=== PATIENT | female | born 1970 | race American Indian/Alaskan Native ===

== ENCOUNTER 2017-09-07 15:26 | Emergency (ER) | payer MEDICAID, OTHER ==
[2017-09-07 15:39] VITALS: BP 138/85; PULSE 73; RESP 19; TEMP 98.7; O2SAT 100
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
[2017-09-07 17:28] LABS: BENZODIAZEPINES, UR NEGATIVE (NEGATIVE)
[2017-09-07 17:31] LABS: BARBITURATES, UR NEGATIVE (NEGATIVE); OPIATES, UR NEGATIVE (NEGATIVE); PHENCYCLIDINE, UR NEGATIVE (NEGATIVE)
--- NOTE | 2017-09-07 17:55 | CT ---
PROCEDURE: CT HEAD WITHOUT CONTRAST. HISTORY: head injury, hx seizures COMPARISON: None available. TECHNIQUE: Axial computed tomography images were obtained through the head/brain without intravenous contrast. Radiation dose: Total exam DLP = 830.40 mGy-cm. This CT exam was performed using one or more of the following dose reduction techniques: Automated exposure control, adjustment of the mA and/or kV according to patient size, and/or use of iterative reconstruction technique. FINDINGS: HEMORRHAGE: No intracranial hemorrhage. BRAIN: Barbosa-white matter differentiation is preserved. There is no mass, mass effect or abnormal extra-axial fluid collection. There is no territorial infarction. VENTRICLES: The ventricles are normal in size, shape and configuration. CALVARIUM: There is no calvarial fracture or extracranial soft tissue swelling. PARANASAL SINUSES: Predominantly clear. MASTOID AIR CELLS: Predominantly clear. OTHER FINDINGS: None. IMPRESSION: No acute intracranial abnormality.
[2017-09-08] MEDS ORDERED: Apap-Butalbital-Caffeine 325-50-40mg Tab ONE (02:33)
== END 2017-09-07 17:56 | disposition left against medical advice (07) ==
LOC: H.ER 15:26
DX: R51 Headache (principal); N39.0 Urinary tract infection, site not specified; F13.10 Sedative, hypnotic or anxiolytic abuse, uncomplicated; Z86.59 Personal history of other mental and behavioral disorders; R56.9 Unspecified convulsions

== ENCOUNTER 2017-09-08 01:21 | Emergency (ER) | payer MEDICAID, OTHER ==
[2017-09-08 01:28] VITALS: BP 124/73; PULSE 60; RESP 16; TEMP 98.5; O2SAT 100
[2017-09-08] MEDS ORDERED: Apap-Butalbital-Caffeine 325-50-40mg Tab PO STA (02:07)
[2017-09-08] MEDS ORDERED: Naloxone HCl 2mg/2ml syr IVP ONE (02:14)
--- NOTE | 2017-09-08 02:14 | ED PDOC ---
HPI: Headache Time Seen by Provider: 09/08/17 01:48 Chief Complaint (Nursing): Headache Chief Complaint (Provider): headache History Per: Patient History/Exam Limitations: no limitations Onset/Duration Of Symptoms: Days (12) Current Symptoms Are (Timing): Still Present Quality: Pressure, "Pain" Associated Symptoms: Photophobia Additional Complaint(s): 47 y/o female history of seizures presents with headache x 12 days. Patient states headache started after a fall at [employer]. Patient states she was evaluated at a hospital in [place] and told she had a concussion. Patient states since head injury she has had two seizures, and also reports intermittent chest pain. Patient states she ran out of ESBATech, her seizure medication, and does not have an appointment to see a Neurologist until 3 weeks from now. Patient was evaluated at ED earlier and left. Denies fever, neck pain, extremity numbness/weakness, shortness of breath, palpitations, leg pain/swelling, recent travel. Past Medical History Reviewed: Historical Data, Nursing Documentation, Vital Signs Vital Signs: Last Vital Signs Temp 98.5 F 09/08/17 01:23 Pulse 60 09/08/17 01:23 Resp 16 09/08/17 01:23 BP 124/73 09/08/17 01:23 Pulse Ox 100 09/08/17 01:23 - Medical History PMH: Anxiety, Depression, Seizures (s/p head injury years ago) - Family History Family History: States: Unknown Family Hx - Home Medications Home Medications: Ambulatory Orders Medication Instructions Recorded Ibuprofen [Motrin] 600 mg PO Q6H PRN #20 tab 01/21/15 Nitrofurantoin Macrocrystals 100 mg PO BID #14 cap 01/21/15 [Macrobid] Nitrofurantoin Macrocrystals 100 mg PO BID #14 cap 09/07/17 [Macrobid] Acetaminophen/Butalbital/Caf 1 tab PO Q6 PRN #15 tab 09/08/17 [Fioricet] - Allergies Allergies/Adverse Reactions: Allergies Allergy/AdvReac Type Severity Reaction Status Date / Time ketorolac [From Toradol] Allergy RASH Verified 09/05/17 22:10 metoclopramide [From Reglan] Allergy unknown Verified 09/05/17 22:11 tetracycline Allergy unknown Verified 09/05/17 22:11 - Laboratory Results Result Diagrams: 09/08/17 02:52 09/08/17 02:52 - ECG O2 Sat by Pulse Oximetry: 100 - Progress ED Course And Treament: labs, chest xray, fioricet PO Patient sleeping on re-eval Patient educated on findings, discharged with rx fioricet. Advised follow up PMD/Neuro Patient requesting Klonopin rx; H/o benzo-seeking behavior as per records. [place] shows 15 Zubsolv filled on both 09/01 and 09/05. Advised will need to f/up outpatient neuro for that rx Return precautions given. Disposition - Clinical Impression Clinical Impression: Acute headache, Chest pain - Patient ED Disposition Is Patient to be Admitted: No Counseled Patient/Family Regarding: Studies Performed, Diagnosis, Need For Followup, Rx Given - Disposition Referrals: [facility] [Outside] Disposition: Routine/Home Disposition Time: 04:08 Condition: IMPROVED Prescriptions: Acetaminophen/Butalbital/Caf [Fioricet] 1 tab PO Q6 PRN #15 tab PRN Reason: Headache Instructions: Headache, Adult, Chest Pain, Acute Headache (ED) Forms: [employer] (Kazakh)
[2017-09-08 03:06] LABS: BASO % 0.8 % (0.0-2.0); EOS % 1.3 % (0.0-4.0); LYMPH % 55.7 % (20.0-40.0); MEAN CORPUSCULAR HEMOGLOBIN 32.1 pg (27.0-31.0); MEAN CORPUSCULAR HGB CONC 33.8 g/dL (33.0-37.0); MEAN PLATELET VOLUME 8.5 fl (7.2-11.7); MONO # 0.4 K/uL (0.0-0.8); MONO % 12.3 % (0.0-10.0); NEUT # 1.1 K/uL (1.8-7.0); NEUT % 29.9 % (50.0-75.0); NRBC % 0.3 % (0.0-0.0); RBC 3.42 Mil/uL (3.80-5.20); RED CELL DISTRIBUTION WIDTH 13.1 % (11.5-14.5); WHITE BLOOD COUNT 3.6 K/uL (4.8-10.8)
[2017-09-08 03:14] LABS: ALB/GLOB RATIO 1.2 (1.0-2.1); ALBUMIN 3.9 g/dL (3.5-5.0); ALT/SGPT 68 U/L (9-52); AST/SGOT 46 U/L (14-36); BLOOD UREA NITROGEN 13 mg/dl (7-17); CALCIUM 8.9 mg/dL (8.4-10.2); GFR AFRICAN-AMERICAN > 60; GFR NON-AFRICAN AMERICAN > 60
--- NOTE | 2017-09-08 09:01 | RAD ---
HISTORY: chest pain COMPARISON: No prior. TECHNIQUE: Chest PA and lateral FINDINGS: LUNGS: No active pulmonary disease. PLEURA: No significant pleural effusion identified. No pneumothorax apparent. CARDIOVASCULAR: Normal. OSSEOUS STRUCTURES: No significant abnormalities. VISUALIZED UPPER ABDOMEN: Right upper quadrant surgical clips. OTHER FINDINGS: None. IMPRESSION: No active disease.
== END 2017-09-08 04:13 | disposition home or self-care (01) ==
LOC: H.ER 01:21
DX: R51 Headache (principal); R07.89 Other chest pain; F32.9 Major depressive disorder, single episode, unspecified; F41.9 Anxiety disorder, unspecified

== ENCOUNTER 2017-09-09 01:40 | Emergency (ER) | payer MEDICAID, OTHER ==
[2017-09-09 02:04] VITALS: BP 113/55; PULSE 59; RESP 16; TEMP 98.2; O2SAT 99
[2017-09-09] MEDS ORDERED: Apap-Butalbital-Caffeine 325-50-40mg Tab PO STA (02:14)
[2017-09-09] MEDS ORDERED: Apap-Butalbital-Caffeine 325-50-40mg Tab ONE (02:26)
--- NOTE | 2017-09-09 02:39 | ED PDOC ---
HPI: Headache Time Seen by Provider: 09/09/17 01:52 Chief Complaint (Nursing): Headache Chief Complaint (Provider): Headache History Per: Patient History/Exam Limitations: no limitations Onset/Duration Of Symptoms: Days (x 2 weeks) Current Symptoms Are (Timing): Still Present Quality: "Pain" Additional Complaint(s): 47 y/o female history of seizures presents with headache x 14 days. Patient states headache started after a fall at [employer]. It is the same headache every time in the back of her head. Patient was evaluated at [facility] and told she had a concussion. She was seen at this ED for the same headache and had a CT performed that was negative. Next day, she had labs drawn that were also normal. Patient states since head injury she has had seizures. She reports that 2-3 days ago, she was seen at [facility] for her seizures and was told to follow up with a neurologist. Patient states that she use to be on Clonazepam for seizures which was prescribed by a doctor in [place] where the patient is from. Patient was evaluated at ED yesterday and left. Admits she took Tylenol for pain with no relief. Denies any new seizures and other medical problems. PMD: none provided Past Medical History Reviewed: Historical Data, Nursing Documentation, Vital Signs Vital Signs: Last Vital Signs Temp 98.2 F 09/09/17 02:01 Pulse 59 L 09/09/17 02:01 Resp 16 09/09/17 02:01 BP 113/55 L 09/09/17 02:01 Pulse Ox 99 09/09/17 02:01 - Medical History PMH: Anxiety, Depression, Seizures (s/p head injury years ago) Denies: Chronic Kidney Disease - Surgical History Surgical History: No Surg Hx - Family History Family History: States: Unknown Family Hx - Home Medications Home Medications: Ambulatory Orders Medication Instructions Recorded Ibuprofen [Motrin] 600 mg PO Q6H PRN #20 tab 01/21/15 Nitrofurantoin Macrocrystals 100 mg PO BID #14 cap 01/21/15 [Macrobid] Nitrofurantoin Macrocrystals 100 mg PO BID #14 cap 09/07/17 [Macrobid] Acetaminophen/Butalbital/Caf 1 tab PO Q6 PRN #15 tab 09/08/17 [Fioricet] - Allergies Allergies/Adverse Reactions: Allergies Allergy/AdvReac Type Severity Reaction Status Date / Time ketorolac [From Toradol] Allergy RASH Verified 09/05/17 22:10 metoclopramide [From Reglan] Allergy unknown Verified 09/05/17 22:11 tetracycline Allergy unknown Verified 09/05/17 22:11 Review of Systems ROS Statement: Except As Marked, All Systems Reviewed And Found Negative Neurological: Positive for: Headache Physical Exam - Reviewed Nursing Documentation Reviewed: Yes Vital Signs Reviewed: Yes - Physical Exam Appears: Positive for: Non-toxic, No Acute Distress Head Exam: Positive for: ATRAUMATIC, NORMOCEPHALIC Skin: Positive for: Normal Color, Warm, Dry Eye Exam: Positive for: EOMI, Normal appearance, PERRL Neck: Positive for: Normal, Painless ROM, Supple Cardiovascular/Chest: Positive for: Regular Rate, Rhythm. Negative for: Murmur Respiratory: Positive for: Normal Breath Sounds. Negative for: Respiratory Distress Gastrointestinal/Abdominal: Positive for: Normal Exam, Soft Back: Positive for: Normal Inspection. Negative for: L CVA Tenderness, R CVA Tenderness, Vertebral Tenderness Extremity: Positive for: Normal ROM. Negative for: Deformity Neurologic/Psych: Positive for: Alert, Oriented. Negative for: Motor/Sensory Deficits - ECG O2 Sat by Pulse Oximetry: 99 (RA) Pulse Ox Interpretation: Normal Medical Decision Making Medical Decision Making: Time: 01:52 Impression: recurrent headaches, concussion Initial Plan: --Fioricet 1 tab PO -reassess As per previous chart: [facility] database revealed Zubslov 5.7/1.4mg SL filled on and 09/05 #15 each. Patient denies seizures prior to arrival and had none during the time at the ED. At this time, there are no indications of any further treatment at the ED. She had recent imaging and lab testing done that was negative. Instructed to follow up with her neurologist and return if seizures occur. Patient was offered fioricet. Patient was informed narcotics are not indicated for recurrent headaches and clonazepam has to prescribed by her PCP or neurologist. She was informed about [facility] and [facility] law on controlled substances. Scribe Attestation: Documented by Allie Mack, acting as a scribe for Telly Wu MD Provider Scribe Attestation: All medical record entries made by the Scribe were at my direction and personally dictated by me. I have reviewed the chart and agree that the record accurately reflects my personal performance of the history, physical exam, medical decision making, and the department course for this patient. I have also personally directed, reviewed, and agree with the discharge instructions and disposition. Disposition - Clinical Impression Clinical Impression: Headache - Patient ED Disposition Is Patient to be Admitted: No Doctor Will See Patient In The: Office Counseled Patient/Family Regarding: Studies Performed, Diagnosis, Need For Followup - Disposition Referrals: [facility] [Outside] Disposition: Routine/Home Disposition Time: 03:20 Condition: GOOD Additional Instructions: Take motrin for pain at home. Take fioricet you were given on your last visit. Follow up with your PCP in 2-3 days. Instructions: Headache, Adult (DC)
== END 2017-09-09 03:23 | disposition home or self-care (01) ==
LOC: H.ER 01:40
DX: S09.90XA Unspecified injury of head, initial encounter (principal); W19.XXXA Unspecified fall, initial encounter; Y92.89 Other specified places as the place of occurrence of the external cause; F32.9 Major depressive disorder, single episode, unspecified; F41.9 Anxiety disorder, unspecified